=== PATIENT | male | born 1970 | race Caucasian/White ===

== ENCOUNTER 2016-09-07 02:24 | Emergency (ER) | payer BC ==
[~2016-09-07] VITALS: Ht 11 cm; Wt 102.3 kg
--- NOTE | 2016-09-07 02:31 | PHYS DOC ---
Past History Past Medical History: High Cholesterol Additional Past Surgical Histo: knee scope Smoking: Non-smoker Adult General Chief Complaint Chief Complaint: CHEST PAIN HPI HPI Patient is a 45 year old male who presents with chest pain. He went to bed without any complaints and 20 min [employer] was awakened with chest pain. Mid chest; no radiation. Pain was a pressure at an 8 initially then now 0. No SOA, no nausea or vomiting or abdominal pain. Last week returned from a trip to the [facility] (driving). Review of Systems Review of Systems Constitutional: Denies fever or chills Eyes: Denies change in visual acuity, redness, or eye pain HENT: Denies nasal congestion or sore throat Respiratory: Denies cough or shortness of breath Cardiovascular: No chest pain GI: Denies abdominal pain, nausea, vomiting, bloody stools or diarrhea : Denies dysuria or hematuria Musculoskeletal: Denies back pain or joint pain Integument: Denies rash or skin lesions Neurologic: Denies headache, focal weakness or sensory changes Family History Family History Positive for heart disease Physical Exam Physical Exam Constitutional: Well developed, well nourished, no acute distress, non-toxic appearance. HENT: Normocephalic, atraumatic, bilateral external ears normal, oropharynx moist, no oral exudates, nose normal. Eyes: PERRLA, EOMI, conjunctiva normal, no discharge. Neck: Normal range of motion, no tenderness, supple, no stridor. Cardiovascular:Heart rate regular rhythm, no murmur Lungs & Thorax: Bilateral breath sounds clear to auscultation Abdomen: Bowel sounds normal, soft, no tenderness, no masses, no pulsatile masses. Skin: Warm, dry, no erythema, no rash. Back: No tenderness, no CVA tenderness. Extremities: No tenderness, no cyanosis, no clubbing, ROM intact, no edema. Neurologic: Alert and oriented X 3, normal motor function, normal sensory function, no focal deficits noted. Psychologic: Affect normal, judgement normal, mood normal. Current Patient Data Vital Signs Vital Signs Date Time Temp Pulse Resp B/P (MAP) Pulse Ox O2 Delivery O2 Flow Rate FiO2 09/07/16 02:24 97.8 77 18 97 Room Air Vital Signs Date Time Temp Pulse Resp B/P (MAP) Pulse Ox O2 Delivery O2 Flow Rate FiO2 09/07/16 02:24 97.8 77 18 97 Room Air Lab Results Laboratory Tests Test 09/07/16 02:34 09/07/16 02:35 09/07/16 04:00 Bedside Troponin I 0.00 ng/ml White Blood Count 8.3 x10^3/uL Red Blood Count 4.64 x10^6/uL Hemoglobin 15.6 g/dL Hematocrit 43.9 % Mean Corpuscular Volume 95 fL Mean Corpuscular Hemoglobin 34 pg Mean Corpuscular Hemoglobin Concent 36 g/dL Red Cell Distribution Width 13.0 % Platelet Count 295 x10^3/uL Neutrophils (%) (Auto) 48 % Lymphocytes (%) (Auto) 39 % Monocytes (%) (Auto) 11 % Eosinophils (%) (Auto) 2 % Basophils (%) (Auto) 1 % Neutrophils # (Auto) 4.0 x10^3uL Lymphocytes # (Auto) 3.2 x10^3/uL Monocytes # (Auto) 0.9 x10^3/uL Eosinophils # (Auto) 0.2 x10^3/uL Basophils # (Auto) 0.1 x10^3/uL D-Dimer (Michelle) < 0.19 mg/L Sodium Level 140 mmol/L Potassium Level 3.8 mmol/L Chloride Level 103 mmol/L Carbon Dioxide Level 31 mmol/L Anion Gap 6 Blood Urea Nitrogen 10 mg/dL Creatinine 1.1 mg/dL Estimated GFR (Cockcroft-Gault) 72.7 BUN/Creatinine Ratio 9 Glucose Level 101 mg/dL Calcium Level 9.0 mg/dL Total Bilirubin 0.5 mg/dL Aspartate Amino Transf (AST/SGOT) 23 U/L Alanine Aminotransferase (ALT/SGPT) 41 U/L Alkaline Phosphatase 76 U/L Creatine Kinase 80 U/L Creatine Kinase MB (Mass) 0.5 ng/mL Creatine Kinase MB Relative Index 0.6 % Troponin I Quantitative < 0.017 ng/mL < 0.017 ng/mL QH-Epw-T-Type Natriuretic Peptide 20 pg/mL Total Protein 7.4 g/dL Albumin 3.7 g/dL Albumin/Globulin Ratio 1.0 Current Medications Medications (Trade) Dose Ordered Sig/Pradip Route PRN Reason Start Time Stop Time Status Last Admin Dose Admin Aspirin (Angel Aspirin) 325 mg 1X ONCE PO 09/07/16 02:45 09/07/16 02:50 DC Aspirin (Children'S Aspirin) 81 mg STK-MED ONCE .ROUTE 09/07/16 02:41 09/07/16 02:42 DC Aspirin (Children'S Aspirin) 324 mg 1X ONCE PO 09/07/16 02:45 09/07/16 02:49 DC 09/07/16 02:45 EKG EKG EKG interpreted by myself, SR rate 71, nonspecific ST changes; no STEMI Radiology/Procedures Radiology/Procedures CXR interpretation shows normal cardiac silhouette. No infiltrates. No pneumothorax. No pleural effusions. Course & Med Decision Making Course & Med Decision Making Pertinent Labs and Imaging studies reviewed. (See chart for details) Evaluated patient. ASA dosed. Pain free upon arrival. 0330 AM: still has no pain. initial lab normal. will recheck trop in 30 min 0445 AM: Second trop neg. Home to f/u w PCP Elsa Disclaimer Dragon Disclaimer This chart was dictated in whole or in part using Voice Recognition software in a busy, high-work load, and often noisy Emergency Department environment. It may contain unintended and wholly unrecognized errors or omissions. Departure Departure: Impression: Primary Impression: Chest pain of unknown etiology Disposition: 01 HOME, SELF-CARE Referrals: BRITTA CEDEÑO (PCP) Patient Instructions: Chest Pain (Nonspecific) Additional Instructions: YOU MUST CALL YOUR PCP TODAY AND SET UP AN APPOINTMENT FOR RE -CHECK. SHERLY FOLEY MD Sep 07, 2016 02:31
[2016-09-07] MEDS ORDERED: ASPIRIN 81 MG TAB.CHEW ONE (02:41)
[2016-09-07 02:44] LABS: BASO # 0.1 x10^3/uL (0.0-0.2); BASO % 1 % (0-3); EOS # 0.2 x10^3/uL (0.0-0.7); EOS % 2 % (0-3); HEMATOCRIT 43.9 % (39.0-53.0); HEMOGLOBIN 15.6 g/dL (13.0-17.5); LYMPH # 3.2 x10^3/uL (1.0-4.8); LYMPH % 39 % (24-48); MEAN CORPUSCULAR HEMOGLOBIN 34 pg (25-35); MEAN CORPUSCULAR HGB CONC 36 g/dL (31-37); MEAN CORPUSCULAR VOLUME 95 fL (79-100); MONO # 0.9 x10^3/uL (0.0-1.1); MONO % 11 % (0-9); NEUT % 48 % (31-73); PLATELET COUNT 295 x10^3/uL (140-400); RED BLOOD COUNT 4.64 x10^6/uL (4.30-5.70); WHITE BLOOD COUNT 8.3 x10^3/uL (4.0-11.0)
[2016-09-07] MEDS ORDERED: ASPIRIN 81 MG TAB.CHEW PO ONE (02:45)
[2016-09-07] MEDS ORDERED: ASPIRIN 325 MG TABLET PO ONE (02:45)
[2016-09-07 03:07] LABS: ALBUMIN 3.7 g/dL (3.4-5.0); CREATININE 1.1 mg/dL (0.7-1.3); GFR 72.7; POTASSIUM 3.8 mmol/L (3.5-5.1); TOTAL BILIRUBIN 0.5 mg/dL (0.2-1.0); TOTAL PROTEIN 7.4 g/dL (6.4-8.2)
[2016-09-07 04:48] VITALS: BP 134/78
--- NOTE | 2016-09-07 06:01 | EKG ---
[address] [address] Test Date: 2016-09-07 Test Time: 02:28:25 Pat Name: MAGNOLIA ARROYO Department: Room: Gender: M Computing Consultant: ANDREA : 1970 Requested By: SHERLY FOLEY Order Number: [id number] Reading MD: Measurements Intervals [place] Rate: 71 P: 36 [place]: 172 QRS: 31 QRSD: 80 T: 24 QT: 366 QTc: 398 Interpretive Statements SINUS RHYTHM NON SPECIFIC ST-T ABNORMALITY (ELEVATION) OTHERWISE NORMAL ECG RI6.01 Unconfirmed report No previous ECG available for comparison
--- NOTE | 2016-09-07 07:14 | RAD ---
Portable chest, 09/07/2016: History: Chest pain The heart size and pulmonary vascularity are normal. The lungs are clear. There is no evidence of pleural fluid. IMPRESSION: No acute cardiopulmonary abnormality is detected.
== END 2016-09-07 04:48 | disposition home or self-care (01) ==
LOC: ER 02:24
DX: R07.89 Other chest pain (principal); E78.00 Pure hypercholesterolemia, unspecified
CPT/HCPCS: 36415; 71010; 80053; 82553; 83880; 84484; 85027; 85379; 93005; 99285-25

== ENCOUNTER → 2021-04-11 | Outpatient (CLI) | payer BC ==
[2021-04-11 08:46] LABS: ALBUMIN 3.7 g/dL (3.4-5.0); ALBUMIN/GLOBULIN RATIO 1.1 (1.0-1.7); CALCIUM 8.7 mg/dL (8.5-10.1); CREATININE 1.1 mg/dL (0.7-1.3); GFR 71.1; POTASSIUM 3.8 mmol/L (3.5-5.1); TOTAL BILIRUBIN 0.7 mg/dL (0.2-1.0); TOTAL PROTEIN 7.1 g/dL (6.4-8.2)
[2021-04-11 21:07] LABS: CHOLESTEROL/HDL RATIO 3.6
== END ==
LOC: LAB 07:44
PROVIDERS: ATTEND Internal Medicine Cardiovascular Disease
DX: E78.5 Hyperlipidemia, unspecified (principal)
CPT/HCPCS: 36415; 80053; 80061

== ENCOUNTER → 2021-07-02 | Outpatient (CLI) | payer BC ==
--- NOTE | 2021-07-02 12:31 | RAD ---
MR#: [id number] Date of Study: 07/02/2021 Ordering Physician: EVER ESCALANTE, Referring Physician: EVER ESCALANTE, Tech: Lilian Maria RVT, [facility] APPROVED REPORT Patient Location: OUT-PATIENT Exam Type: Ankle to Brachial Index Indications Claudication: Risk Factors Smoking Pressures/Indices RightABI LeftABI Brachial [id number] [id number] Ankle(PT) 126mmHgAnkle(PT) 117mmHg Ankle(DP) 131mmHgAnkle(DP) 126mmHg Critical Notification Critical Value: No <Conclusion> The right ankle-brachial index is normal at 1.1. The left ankle-brachial index is also normal at 1.1 . No significant peripheral artery stenosis based on ABIs. Signed by : Obi Hernandez, Electronically Approved : 07/02/2021 12:31:14
--- NOTE | 2021-07-02 12:33 | RAD ---
MR#: [id number] Date of Study: 07/02/2021 Ordering Physician: EVER ESCALANTE, Referring Physician: EVER ESCALANTE, Tech: Lilian Maria RVT, [facility] APPROVED REPORT Patient Location: OUT-PATIENT Indications Claudication: Risk Factors Smoking VELOCITY AND DOPPLER WAVEFORM ANALYSIS RIGHT cm/secWaveformSeverity LEFT cm/secWaveform Severity dCFA 128.0TriphasicdCFA 99.0Triphasic Prof Fem Art. 65.0TriphasicProf Fem Art. 56.0Triphasic Fem Art Prox. 87.0TriphasicFem Art Prox. 88.0Triphasic Fem Art Mid. 88.0TriphasicFem Art Mid. 85.0Triphasic Fem Art Dist. 76.0TriphasicFem Art Dist. 60.0Triphasic Pop Art(Fossa) 66.0TriphasicPop Art(AK) 64.0Triphasic COLD STRIP ROLLER Prox. 69.0TriphasicPTA Prox. 54.0Triphasic COLD STRIP ROLLER Dist. 71.0TriphasicPTA Dist. 79.0Triphasic Per Art Dist.33.0TriphasicPer Art Dist.44.0Triphasic JYOTHI Prox. 69.0TriphasicATA Prox. 76.0Triphasic DPA 82TriphasicDPA 71Triphasic Critical Notification Critical Value: No <Conclusion> FINDINGS Grayscale images of peripheral arteries bilateral lower extremities were grossly unremarkable. Spect ral waveform and color duplex analysis showed normal velocities with triphasic waveforms in bilateral common femoral, deep femoral, superficial femoral and popliteal arteries. There is three-vessel run off below the knee with normal velocities and triphasic waveforms. No significant peripheral artery stenosis noted. CONCLUSIONS Bilateral lower extremity arterial duplex scan did not show any significant peripheral artery stenosi s. Signed by : Obi Hernandez, Electronically Approved : 07/02/2021 12:32:55
== END ==
LOC: US 10:55
PROVIDERS: ATTEND Internal Medicine Cardiovascular Disease
DX: I73.9 Peripheral vascular disease, unspecified (principal)
CPT/HCPCS: 93923; 93925

== ENCOUNTER → 2021-07-03 | Outpatient (CLI) | payer BC ==
--- NOTE | 2021-07-03 11:36 | RAD ---
MR#: [id number] Date of Study: 07/03/2021 Ordering Physician: EVER ESCALANTE, Referring Physician: EVER ESCALANTE, Tech: Lilian Maria RVT, [facility] APPROVED REPORT Patient Location : OUT-PATIENT Critical Notification Critical Value: No <Conclusion> FINDINGS Grayscale images of superficial veins and saphenofemoral junctions bilateral lower extremities were g rossly unremarkable without any evidence of thrombus. Spectral waveform and color duplex analysis di d not show any significant reflux involving bilateral greater or lesser saphenous veins. CONCLUSIONS Venous reflux study did not show any significant venous insufficiency involving bilateral greater or lesser saphenous veins. Signed by : Obi Hernandez, Electronically Approved : 07/03/2021 11:35:23
== END ==
LOC: US 10:07
PROVIDERS: ATTEND Internal Medicine Cardiovascular Disease
DX: R22.43 Localized swelling, mass and lump, lower limb, bilateral (principal)
CPT/HCPCS: 93970